=== PATIENT | male | born 1985 | race Two or more races ===

== ENCOUNTER 2019-08-21 14:24 | Emergency (ER) | payer SELFPAY ==
[~2019-08-21] VITALS: Ht 167.6 cm; Wt 99.8 kg
[2019-08-21] MEDS ORDERED: SODIUM CHLORIDE 0.9% 1,000 ML IV ONE (15:52)
[2019-08-21] MEDS ORDERED: ONDANSETRON HCL 4 MG/2 ML VIAL IV ONE (16:00)
[2019-08-21 16:33] LABS: Basophils # (auto) 0.1 uL; Basophils % (auto) 0.4 % (0.0-2.0); Eosinophils # (auto) 0 uL; Hematocrit 48.2 % (41.0-53.0); Hemoglobin 16.8 g/dL (13.5-17.5); Lymphocytes # (auto) 0.8 uL; Mean Corpuscular Hemoglobin 31.4 pg (28.0-32.0); Mean Corpuscular Hgb Conc. 34.9 g/dL (32.0-36.0); Monocytes # (auto) 0.7 uL; Neutrophils # (auto) 12.3 uL; Neutrophils % (auto) 88.6 % (37.0-80.0); Platelet Count (auto) 214 10^3/uL (140-450); Red Blood Cells 5.36 10^6/uL (4.5-5.90); Red Cell Distribution Width 13.5 % (11.8-14.3); White Blood Cell 13.9 10^3/uL (4.4-10.8)
[2019-08-21 16:48] LABS: Albumin 3.5 g/dL (3.4-5.0); Calcium 8.7 mg/dL (8.5-10.1); Potassium 3.7 mmol/L (3.5-5.1)
[2019-08-21 16:51] LABS: BUN/Creatinine Ratio 13.5
[2019-08-21 20:15] VITALS: BP 123/89
== END 2019-08-21 20:34 | disposition home or self-care (01) ==
LOC: ER 14:31
DX: A09 Infectious gastroenteritis and colitis, unspecified (principal); R11.14 Bilious vomiting
CPT/HCPCS: 36415; 74176; 80053; 83690; 85025; 96361; 96374; 99284; J2405; J7030